=== PATIENT | female | born 1965 | race Hispanic/Latino ===

== ENCOUNTER 2020-02-20 20:56 | Emergency (ER) | payer SELFPAY ==
[~2020-02-20] VITALS: Ht 152.4 cm; Wt 65.8 kg
[2020-02-20] MEDS ORDERED: ACETAMINOPHEN 325 MG TAB PO ONE (21:30)
[2020-02-20] MEDS ORDERED: CEFTRIAXONE SOD 1 GM VIAL IM ONE (21:30)
[2020-02-20] MEDS ORDERED: LIDOCAINE HCL 1% LOCAL INJ 20 ML VIAL ONE (21:59)
[2020-02-20] MEDS ORDERED: ACETAMINOPHEN 325 MG TAB ONE (21:59)
[2020-02-20] MEDS ORDERED: CEFTRIAXONE SOD 1 GM VIAL ONE (22:00)
[2020-02-20] MEDS ORDERED: MAGNESIUM CITR296 ML PO (22:15)
[2020-02-20] MEDS ORDERED: CIPRO500 MG PO (22:15)
[2020-02-20] MEDS ORDERED: METFORMIN HCL500 MG PO (22:19)
== END 2020-02-20 22:25 | disposition home or self-care (01) ==
LOC: FSED 21:30
DX: Z76.0 Encounter for issue of repeat prescription (principal); K59.00 Constipation, unspecified; N39.0 Urinary tract infection, site not specified; R10.9 Unspecified abdominal pain; E86.0 Dehydration; I10 Essential (primary) hypertension; E11.9 Type 2 diabetes mellitus without complications
CPT/HCPCS: 81003; 87086; 96372; 99283; J0696; J2001